=== PATIENT | female | born 1945 | race Caucasian/White ===

== ENCOUNTER → 2020-11-15 | Outpatient (CLI) | payer MEDICARE ==
[2020-11-15 14:21] LABS: Appearance,Urine Clear (Clear); Bilirubin,Urine Negative (Negative); Blood,Urine Negative (Negative); Color,Urine Yellow; Glucose,Urine (UA) Negative (Negative); Ketones,Urine Negative (Negative); Leukocyte Esterase,Urine Negative (Negative); Nitrite,Urine Negative (Negative); PH, Urine 6.5 (5.0-8.0); Protein,Urine Negative (Negative); Specific Gravity,Urine 1.018 (1.001-1.035); Urobilinogen,Urine <2.0 mg/dL (<2.0)
[2020-11-15 14:23] LABS: Basophils # (A) 0.1 k/uL (0-0.2); Basophils % (A) 1 %; Eosinophils # (A) 0.3 k/uL (0-0.7); Eosinophils % (A) 7 %; HCT 38.8 % (34.0-46.0); HGB 13.3 gm/dL (11.4-16.0); Lymphocytes # (A) 1.4 k/uL (1.0-4.8); Lymphocytes % (A) 32 %; MCH 29.3 pg (25.0-35.0); MCHC 34.3 g/dL (31.0-37.0); MCV 85.4 fL (80.0-100.0); Monocytes # (A) 0.3 k/uL (0-1.0); Monocytes % (A) 7 %; Neutrophils # (A) 2.3 k/uL (1.3-7.7); Neutrophils % (A) 52 %; Platelet Count 279 k/uL (150-450); RBC 4.54 m/uL (3.80-5.40); RDW 12.7 % (11.5-15.5); WBC 4.4 k/uL (3.8-10.6)
[2020-11-15 14:29] LABS: ALT 18 U/L (4-34); AST 21 U/L (14-36); African American GFR (CKD) >90 (>60 ml/min/1.73 sqM); Albumin 4.2 g/dL (3.5-5.0); Alkaline Phosphatase 69 U/L (38-126); Anion Gap 5 mmol/L; Blood Urea Nitrogen 18 mg/dL (7-17); Calcium 9.8 mg/dL (8.4-10.2); Carbon Dioxide 28 mmol/L (22-30); Chloride 106 mmol/L (98-107); Glucose 96 mg/dL (74-99); Non-African American GFR(CKD) 79 (>60 ml/min/1.73 sqM); Potassium 4.2 mmol/L (3.5-5.1); Sodium 139 mmol/L (137-145); Total Bilirubin 0.5 mg/dL (0.2-1.3); Total Protein 6.8 g/dL (6.3-8.2)
== END | disposition home or self-care (01) ==
LOC: LABPAT 13:39
PROVIDERS: ATTEND Urology
DX: Z01.818 Encounter for other preprocedural examination (principal); N13.1 Hydronephrosis with ureteral stricture, not elsewhere classified; R31.29 Other microscopic hematuria
CPT/HCPCS: 36415; 80053; 81003; 85025; 87086

== ENCOUNTER 2020-11-22 07:33 | Inpatient (IN) | payer MEDICARE ==
[2020-11-16 16:44] VITALS: BMI 33.3
--- NOTE | 2020-11-21 18:58 | P.GSHP ---
History of Present Illness H&P Date: 11/21/20 75 yo female with painful right hydronephrosis who comes for cysto retrograde and possibe right ureteral reimplant. 1 1/2 years ago she underwent a right ureteral dilation and stent placement. It controlled the problem. Follow up xray showed improvement as well as pain resolution. the pain and hydro subsequently have returned. She underwent a ct scan in [place] showing this. We discussed options The plan is cysto retrograde with probable right ureteral reimplantation. The risks including persistence of pain and obstruction have been explained understood and accepted. - Constitutional Constitutional: Denies chills, Denies fever - EENT Eyes: denies blurred vision, denies pain Ears, nose, mouth and throat: Denies headache, Denies sore throat - Cardiovascular Cardiovascular: Denies chest pain, Denies shortness of breath - Respiratory Respiratory: Denies cough, Denies 7 - Gastrointestinal Gastrointestinal: Denies abdominal pain, Denies diarrhea, Denies nausea, Denies vomiting - Genitourinary (Female) Genitourinary: Denies dysuria, Denies hematuria - Genitourinary (Male) Genitourinary: Denies dysuria, Denies hematuria - Musculoskeletal Musculoskeletal: Denies myalgias - Integumentary Integumentary: Denies pruritus, Denies rash - Neurological Neurological: Denies numbness, Denies weakness - Psychiatric Psychiatric: Denies anxiety, Denies depression - Endocrine Endocrine: Denies fatigue, Denies weight change Past Medical History Past Medical History: Cancer, COPD, GERD/Reflux, Hyperlipidemia, Hypertension, Musculoskeletal Disorder, Osteoarthritis (OA), Sleep Apnea/CPAP/BIPAP Additional Past Medical History / Comment(s): Breast cancer 06/2020, surgery 09/14/20, radiation tx - last 11/16/20. Hx hydronephrosis w/ ureteral blockage; hx kidney stones. Unable to use CPAP. 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 Cystoscopy, ureteral proc. Past Anesthesia/Blood Transfusion Reactions: Family History of Problems w/ Anesthesia Additional Past Anesthesia/Blood Transfusion Reaction / Comment(s): Brother wakes up during surgery Smoking Status: Never smoker - Past Family History Mother Family Medical History: Cancer Additional Family Medical History / Comment(s): colon, lung cancer Brother(s) Family Medical History: Cancer Additional Family Medical History / Comment(s): colon cancer Medications and Allergies Home Medications Medication Instructions Recorded Confirmed Type Aspirin [Adult Low Dose Aspirin EC] 81 mg PO DAILY 11/16/20 11/16/20 History Cholecalciferol [Vitamin D3 (25 75 mcg PO DAILY 11/16/20 11/16/20 History Mcg = 1000 Iu)] Losartan Potassium [Cozaar] 100 mg PO DAILY 11/16/20 11/16/20 History Verapamil Sr [Isoptin Sr] 240 mg PO DAILY 11/16/20 11/16/20 History Allergies Allergy/AdvReac Type Severity Reaction Status Date / Time Iodinated Contrast Media Allergy Dyspnea Verified 11/16/20 16:11 Surgical - Exam - General well developed, well nourished, no distress - Eyes PERRL - ENT no hearing loss - Neck trachea midline - Respiratory normal expansion, normal respiratory effort - Cardiovascular Rhythm: regular - Abdomen Abdomen: soft, non tender - Genitourinary normal external genitalia, normal perineum - Neurologic normal coordination, normal sensation - Musculoskeletal normal gait, normal posture - Psychiatric oriented to time, oriented to person, oriented to place, speech is normal, memory intact Assessment and Plan Assessment: Impression: Rt ureteral stricture.with symptomatic hydronephrosis. Plan Cysto with right retrograde pyelogram with probable ureteral reimplantation right
[~2020-11-22 07:33] MED LIST: AMPICILLIN 1,000 MG in SODIUM CHLORIDE 0.9% 50 ML IVPB PRN; DEXAMETHASONE SOD PHOSPHATE 4 MG/ML 1 ML VIAL IV PRN; GENTAMICIN 110 MG in SODIUM CHLORIDE 0.9% 100 ML IVPB PRN; LIDOCAINE 1% (10MG/ML) FOR IV START INTRADERMA PRN; METOCLOPRAMIDE 5 MG/ML 2 ML VIAL IVP PRN
[2020-11-22] MEDS ORDERED: ONDANSETRON 4 MG/2 ML VIAL ONE (08:07)
[2020-11-22] MEDS: LACTATED RINGERS 1,000 ML IV SCH (08:08)
[2020-11-22] MEDS ORDERED: GLYCOPYRROLATE 0.2 MG/ML 2 ML VIAL ONE (08:26)
[2020-11-22] MEDS ORDERED: LIDOCAINE 1% INJ 10MG/ML (20 ML MDV) ONE (08:26)
[2020-11-22] MEDS ORDERED: SUCCINYLCHOLINE CHLORIDE 100 MG/5 ML SYR IV ONE (08:26)
[2020-11-22] MEDS ORDERED: MIDAZOLAM 2 MG/2 ML VIAL ONE (08:26)
[2020-11-22] MEDS ORDERED: fentaNYL (PF) 50 MCG/ML 2 ML AMP ONE (08:26)
[2020-11-22] MEDS ORDERED: ROCURONIUM 10 MG/ML (5 ML VIAL) IV ONE (08:26)
[2020-11-22] MEDS ORDERED: ePHEDrine SULFATE/0.9% NACL/PF 50 MG/5 ML SYRINGE IV ONE (08:26)
[2020-11-22] MEDS ORDERED: PROPOFOL 10 MG/ML 20 ML VIAL IV ONE (08:26)
[2020-11-22] MEDS ORDERED: HYDROmorphone (PF) 1 MG/ML ONE (08:26)
[2020-11-22] MEDS ORDERED: NEOSTIGMINE 1 MG/ML 10 ML VIAL ONE (08:26)
[2020-11-22] MEDS ORDERED: IOPAMIDOL-370 50ML BTL MISCELLANE ONE (08:44)
[2020-11-22] MEDS ORDERED: LACTATED RINGERS 1,000 ML IV ONE ×2 (09:30→13:49)
[2020-11-22] MEDS ORDERED: HYDROmorphone PCA 10 MG/50 ML BAG IV PRN (10:33)
[2020-11-22] MEDS ORDERED: NALOXONE 0.4 MG/ML 1 ML VIAL IV PRN (10:33)
[2020-11-22] MEDS ORDERED: OXYBUTYNIN CHLORIDE 5 MG TAB PO PRN (10:38)
--- NOTE | 2020-11-22 10:38 | P.OP ---
Date of Procedure: 11/22/20 Preoperative Diagnosis: Right ureteral obstruction Postoperative Diagnosis: Same Procedure(s) Performed: Cystoscopy, right retrograde pyelograms, pelvic exploration with distal ureterectomy and right ureteral reimplantation, placement of 624 stent Anesthesia: [place] Surgeon: Christian Avila [employer] Member #1: Meño Mcduffie Estimated Blood Loss (ml): 100 Pathology: other (Distal ureter right) Condition: stable Disposition: PACU Indications for Procedure: The patient is 75. She has has had intermittent right flank pain. She x-rays and evaluation of identified a distal ureteral obstruction on the right. Dilation failed to control the problem. She come for distal ureterectomy and reimplantation Description of Procedure: Patient is brought to the operating suite. She is given a general endotracheal anesthesia. She's placed lithotomy position with sterile prep and drape. Cystoscopy Foroblique lens and 22-Serbian sheath identifies normal urethra. The bladder mucosa is unremarkable. Within a cone-tipped catheter right retrograde pyelogram performed. The intramural tunnel is very tight and there is a hydroureter proximal right to the ureteral vesicle junction. This appears to be the cause of her intermittent discomfort do. I will remove the distal right ureter and reimplant. Patient is taken out of lithotomy position placed in a prone position with sterile prep and drape. A midline and incision is made from pubis to below the umbilicus. The rectus fascia is opened in the middle. The prevesical space is developed. The bladder is identified and a vertical cystotomy is made. After adequate retraction the right distal ureter is identified. A 5-Serbian open- ended catheters passed up the ureter and secured to the ureteral orifice. I then ellipsed of the mucosa around the ureteral orifice. With electrocautery and Metzenbaums I dissect the right ureter out of the intramural tunnel back up into the pelvis. I advanced the ureter into the tunnel. The distal end of the ureter is resected. I spatulated the ureter and reimplant the ureter using 3-0 Vicryl. I first closed the muscle backing behind the ureter with interrupted 3- 0 Vicryl. After adequately reimplant in the ureter I then pass a 6-Serbian by 24 cm double-J catheter up the right ureter and coils in the renal pelvis and the bladder I then closed the bladder in 2 layers with 3-0 Vicryl and then 2-0 Vicryl. A Quintin-Monteiro drain is brought through separate stab incision. The rectus fascias closed with double-stranded 0 PDS. The skin is stapled the patient awake and returned recovery in good condition. Blood loss is approximately 100 mL. Patient we placed in the hospital postoperatively. Her condition is good.
[2020-11-22] MEDS: HYDROmorphone 0.5 MG/0.5 ML SYRINGE IVP PRN ×3 (10:43→12:36)
--- NOTE | 2020-11-22 11:45 | FL ---
Fluoroscopy INDICATION: Pain FINDINGS: Fluoroscopy time: 55 seconds. Images obtained: 3. IMPRESSIONS: 1. Documentation of fluoroscopy.
[2020-11-22] MEDS: ONDANSETRON 4 MG/2 ML VIAL IVP PRN ×2 (15:31→19:10)
[2020-11-22] MEDS: DEXTROSE 5%-0.45% NACL 1,000 ML IV SCH ×2 (15:56→20:55)
[2020-11-22] MEDS: HEPARIN SODIUM,PORCINE 5,000 UNIT/ML 1 ML VIAL SQ SCH (20:55)
[2020-11-22] MEDS: METOCLOPRAMIDE 5 MG/ML 2 ML VIAL IVP PRN (20:55)
[2020-11-23] MEDS: METOCLOPRAMIDE 5 MG/ML 2 ML VIAL IVP PRN (02:03)
[2020-11-23] MEDS: LACTATED RINGERS 1,000 ML IV SCH (07:35)
[2020-11-23] MEDS: LOSARTAN 50 MG TAB PO SCH (07:40)
[2020-11-23] MEDS: HEPARIN SODIUM,PORCINE 5,000 UNIT/ML 1 ML VIAL SQ SCH ×2 (07:41→20:29)
[2020-11-23] MEDS: VERAPAMIL SR 240 MG TABLET.ER PO SCH (07:41)
[2020-11-23] MEDS: DEXTROSE 5%-0.45% NACL 1,000 ML IV SCH ×2 (07:50→16:14)
--- NOTE | 2020-11-23 11:28 | P.PN ---
Subjective Progress Note Date: 11/23/20 Principal diagnosis: POD #1, s/p right ureteral reimplant The patient is lying supine in her bed. She states that her incisional pain is controlled. She has experienced intractable nausea since her surgery. She feels that Reglan has been more effective in controlling this than Zofran. Objective - Vital Signs Vital signs: Vital Signs Temp 97.6 F 11/23/20 10:29 Pulse 79 11/23/20 10:29 Resp 16 11/23/20 10:29 BP 174/80 11/23/20 10:29 Pulse Ox 92 L 11/23/20 10:29 Intake & Output 11/22/20 11/23/20 11/23/20 18:59 06:59 18:59 Intake Total 2152.75 Output Total 210 1920 Balance 1942.75 -1920 Weight 97.4 kg Intake: IV 2152.75 Output: Drainage 20 Right Abdomen 20 Urine 110 1900 Estimated Blood Loss 100 Other: Voiding Method Indwelling Catheter Indwelling Catheter Indwelling Catheter - Constitutional General appearance: Present: cooperative, no acute distress - Gastrointestinal Gastrointestinal Comment(s): Soft, non-distended. Incision clean, with minimal sanguinous drainage. Minimal REBECCA output. The Boone catheter is draining faintly blood-tinged urine. - Psychiatric Psychiatric: Present: A&O x's 3, appropriate affect Assessment and Plan (1) Ureteral stricture, right Current Visit: Yes Status: Acute Code(s): N13.5 - CROSSING VESSEL AND STRICTURE OF URETER W/O HYDRONEPHROSIS SNOMED Code(s): 89465055 Plan: The patient condition is stable. She was encouraged to ambulate.
[2020-11-24] MEDS: DEXTROSE 5%-0.45% NACL 1,000 ML IV SCH (01:14)
[2020-11-24] MEDS: LACTATED RINGERS 1,000 ML IV SCH (05:19)
[2020-11-24 07:35] VITALS: RESP 18
--- NOTE | 2020-11-24 07:40 | P.PN ---
Subjective Progress Note Date: 11/24/20 Second post op day from right ureteral reimplant. VSS afebrile uo good Minimal pain Drainage minimal WOund ok tolerated clear liquids. Will d/c ivf, ambulate and regular diet. WIll place on oral pain meds. If ok today plan on removing zeynep in am and d/c home rv in 1 week for cath and staple removal. Objective - Vital Signs Vital signs: Vital Signs Temp 98.9 F 11/24/20 06:24 Pulse 86 11/24/20 06:24 Resp 18 11/24/20 06:24 BP 162/82 11/24/20 06:24 Pulse Ox 90 L 11/24/20 06:24 Intake & Output 11/23/20 11/24/20 11/24/20 18:59 06:59 18:59 Output Total 3815 1910 Balance -3815 -1910 Output: Drainage 15 10 Right Abdomen 15 10 Urine 3800 1900 Other: Voiding Method Indwelling Catheter Indwelling Catheter
[2020-11-24] MEDS: VERAPAMIL SR 240 MG TABLET.ER PO SCH (08:43)
[2020-11-24] MEDS: HEPARIN SODIUM,PORCINE 5,000 UNIT/ML 1 ML VIAL SQ SCH ×2 (08:44→20:59)
[2020-11-24] MEDS: LOSARTAN 50 MG TAB PO SCH (08:44)
[2020-11-24] MEDS: HYDROcodone/APAP 5-325MG 1 EACH TAB PO PRN ×3 (12:58→23:36)
[2020-11-25] MEDS: LACTATED RINGERS 1,000 ML IV SCH (00:46)
[2020-11-25] MEDS: HYDROcodone/APAP 5-325MG 1 EACH TAB PO PRN ×3 (08:13→15:25)
[2020-11-25] MEDS: VERAPAMIL SR 240 MG TABLET.ER PO SCH (08:14)
[2020-11-25] MEDS: LOSARTAN 50 MG TAB PO SCH (08:14)
[2020-11-25] MEDS: HEPARIN SODIUM,PORCINE 5,000 UNIT/ML 1 ML VIAL SQ SCH (08:14)
--- NOTE | 2020-11-25 10:18 | P.DS ---
Providers Date of admission: 11/22/20 07:33 Attending physician: Christian Avila Primary care physician: Stated None Hospital Course: This is 75-year-old female with history of hydronephrosis. She underwent the right-sided ureteral implant by Dr. Betts on November 22. The patient was admitted to the hospital postoperatively. She did well in the postoperative period. Her REBECCA drain was removed on postoperative day #3. She was discharged home on postoperative day #3, with the Boone catheter. At time of discharge she was tolerating a diet, ambulating, pain was well-controlled. Her abdominal exam was benign and incision was CDI Plan - Discharge Summary Discharge Rx Participant: No New Discharge Prescriptions: New HYDROcodone/APAP 5-325MG [[place] 5-325] 1 tab PO Q6HR PRN 3 Days #12 tab PRN Reason: Pain No Action Cholecalciferol [Vitamin D3 (25 Mcg = 1000 Iu)] 75 mcg PO DAILY Aspirin [Adult Low Dose Aspirin EC] 81 mg PO DAILY Verapamil Sr [Isoptin Sr] 240 mg PO DAILY Losartan Potassium [Cozaar] 100 mg PO DAILY Discharge Medication List Aspirin [Adult Low Dose Aspirin EC] 81 mg PO DAILY 11/16/20 [History] Cholecalciferol [Vitamin D3 (25 Mcg = 1000 Iu)] 75 mcg PO DAILY 11/16/20 [History] Losartan Potassium [Cozaar] 100 mg PO DAILY 11/16/20 [History] Verapamil Sr [Isoptin Sr] 240 mg PO DAILY 11/16/20 [History] HYDROcodone/APAP 5-325MG [[place] 5-325] 1 tab PO Q6HR PRN 3 Days #12 tab 11/25/20 [Rx] Follow up Appointment(s)/Referral(s): [facility], [NON-STAFF] - ([facility] will call you to set up your first visit for 1-2 days after discharge from the hospital.) Christian Avila MD [STAFF PHYSICIAN] - 1 Week Activity/Diet/Wound Care/Special Instructions: No heavy lifting or straining for 4 weeks Increase fluid intake Discharge Disposition: HOME SELF-CARE
[2020-11-25 15:05] VITALS: BP 103/54; PULSE 79; TEMP 98.2
== END 2020-11-25 15:37 | disposition home health service (06) | DRG 661 ==
LOC: 2ORMAIN 07:33 → 4SSUR 14:10
PROVIDERS: ADMIT Urology; ATTEND Urology
PROC: BT1D1ZZ Fluoroscopy of Right Kidney, Ureter and Bladder using Low Osmolar Contrast (ICD-10-PCS; 2020-11-22)
PROC: 0TB68ZZ Excision of Right Ureter, Via Natural or Artificial Opening Endoscopic (ICD-10-PCS; principal; 2020-11-22 08:30)
PROC: 0T768DZ Dilation of Right Ureter with Intraluminal Device, Via Natural or Artificial Opening Endoscopic (ICD-10-PCS; 2020-11-22 08:30)
PROC: 0TS64ZZ Reposition Right Ureter, Percutaneous Endoscopic Approach (ICD-10-PCS; 2020-11-22 08:30)
DX: N13.1 Hydronephrosis with ureteral stricture, not elsewhere classified (principal); J44.9 Chronic obstructive pulmonary disease, unspecified; K21.9 Gastro-esophageal reflux disease without esophagitis; E78.5 Hyperlipidemia, unspecified; I10 Essential (primary) hypertension; G47.30 Sleep apnea, unspecified; M19.90 Unspecified osteoarthritis, unspecified site; R11.0 Nausea; Z79.82 Long term (current) use of aspirin; Z79.899 Other long term (current) drug therapy; Z85.3 Personal history of malignant neoplasm of breast; Z92.3 Personal history of irradiation; Z87.442 Personal history of urinary calculi; Z90.49 Acquired absence of other specified parts of digestive tract; Z90.710 Acquired absence of both cervix and uterus; Z98.890 Other specified postprocedural states; Z91.041 Radiographic dye allergy status; Z80.1 Family history of malignant neoplasm of trachea, bronchus and lung; Z80.0 Family history of malignant neoplasm of digestive organs
CPT/HCPCS: 74420; 88305

== ENCOUNTER → 2021-02-14 | Outpatient (CLI) | payer MEDICARE ==
--- NOTE | 2021-02-14 17:03 | CT ---
EXAMINATION TYPE: CT abdomen pelvis wo con DATE OF EXAM: 02/14/2021 COMPARISON: 04/07/2020 HISTORY: left flank pain CT DLP: 1102 mGycm Automated exposure control for dose reduction was used. Images obtained from the diaphragm to the floor the pelvis with no contrast. Lung bases are clear of consolidation. There is no pleural effusion. Heart size is normal. There is n o pericardial effusion. Liver spleen pancreas stomach appear intact. The bile ducts are not dilated. There are clips from cho lecystectomy. There is no adrenal mass. Kidneys have normal size. There is left-sided hydronephrosis and hydrourete r. There is 5 mm obstructing calculus in the distal left ureter close to the ureterovesical junction. Bladder distends smoothly. There is no inguinal hernia. There is no free fluid in the pelvis. There is no evidence of pelvic mass. There are multiple sigmoid diverticula. There is no diverticulitis. Ap pendix appears normal. There is no mesenteric edema. There is no ascites or free air. There is no bow el obstruction. Lumbar vertebra have normal alignment. There is no compression fracture. There is mild degenerative h ypertrophic changes. Bony pelvis is intact. There is some mild hypertrophic changes in the acetabula. IMPRESSION: Obstructing calculus distal left ureter with left-sided hydronephrosis and hydroureter. Obstruction a ppears new compared to old exam. No other calculus seen. Colonic diverticulosis.
== END | disposition home or self-care (01) ==
LOC: RADCTMAIN 16:21
PROVIDERS: ATTEND Urology
DX: N13.2 Hydronephrosis with renal and ureteral calculous obstruction (principal); K57.30 Diverticulosis of large intestine without perforation or abscess without bleeding; N13.4 Hydroureter; Z90.49 Acquired absence of other specified parts of digestive tract
CPT/HCPCS: 74176

== ENCOUNTER → 2021-02-14 | Outpatient (CLI) | payer MEDICARE ==
--- NOTE | 2021-02-14 15:27 | XR ---
EXAMINATION TYPE: XR KUB DATE OF EXAM: 02/14/2021 3:16 PM CLINICAL HISTORY: Right-sided kidney stone. TECHNIQUE: Two supine KUB images of the abdomen are obtained. COMPARISON: CT urogram April 07, 2020. FINDINGS: No definitive nephrolithiasis. Overall nonobstructive bowel gas pattern. Scattered bilateral pelvic phleboliths. Cystectomy clips re demonstrated. Multilevel spurring in the visualized spine. Sclerosis and narrowing at pubic symphysis . IMPRESSION: As above.
== END | disposition home or self-care (01) ==
LOC: RADXRMAIN 14:57
PROVIDERS: ATTEND Urology
DX: N20.0 Calculus of kidney (principal)
CPT/HCPCS: 74018

== ENCOUNTER → 2023-09-10 | Outpatient (CLI) | payer MEDICARE ==
--- NOTE | 2023-09-10 18:34 | XR ---
EXAMINATION TYPE: XR KUB DATE OF EXAM: 09/10/2023 5:03 PM CLINICAL INDICATION:Female, 77 years old with history of N20.0; H COMPARISON: KUB 02/14/2021 TECHNIQUE: Multiple radiographs of the abdomen were obtained. FINDINGS: The bowel gas pattern is nonspecific without dilated loops of small or large bowel. There i s no evidence for organomegaly or pneumoperitoneum. The osseous structures are intact. Pelvic phleb oliths are present. Fecal material and gas are demonstrated throughout the colon and rectum. Postsu rgical clips are noted in the right upper quadrant. IMPRESSION: Nonspecific bowel gas pattern without radiographic evidence for acute process.
== END | disposition home or self-care (01) ==
LOC: RADXRMAIN 16:40
PROVIDERS: ATTEND Urology
DX: N20.0 Calculus of kidney (principal); R14.0 Abdominal distension (gaseous)
CPT/HCPCS: 74018

== ENCOUNTER 2024-06-10 09:28 | Day surgery (SDC) | payer MEDICARE ==
--- NOTE | 2024-06-09 16:21 | P.GSHP ---
History of Present Illness H&P Date: 06/09/24 78 yo female seen in early may for luts, r uti and possible stone. She went to [facility] and had a ct scan that identified an 8 mm right mid ureteral stone.. She comes for right ureteroscopy with stone removal and probable stent plaement - Constitutional Constitutional: Denies chills, Denies fever - EENT Eyes: denies blurred vision, denies pain Ears, nose, mouth and throat: Denies headache, Denies sore throat - Cardiovascular Cardiovascular: Denies chest pain, Denies shortness of breath - Respiratory Respiratory: Denies cough, Denies 7 - Gastrointestinal Gastrointestinal: Denies abdominal pain, Denies diarrhea, Denies nausea, Denies vomiting - Genitourinary (Female) Genitourinary: Denies dysuria, Denies hematuria - Genitourinary (Male) Genitourinary: Denies dysuria, Denies hematuria - Musculoskeletal Musculoskeletal: Denies myalgias - Integumentary Integumentary: Denies pruritus, Denies rash - Neurological Neurological: Denies numbness, Denies weakness - Psychiatric Psychiatric: Denies anxiety, Denies depression - Endocrine Endocrine: Denies fatigue, Denies weight change Past Medical History Past Medical History: Cancer, GERD/Reflux, Hyperlipidemia, Hypertension, Musculoskeletal Disorder, Osteoarthritis (OA), Sleep Apnea/CPAP/BIPAP Additional Past Medical History / Comment(s): Breast cancer 06/2020, surgery 09/14/20, radiation tx - last 11/16/20. Hx hydronephrosis w/ ureteral blockage; hx kidney stones. Unable to use CPAP. 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 Cystoscopy, ureteral proc. Past Anesthesia/Blood Transfusion Reactions: Family History of Problems w/ Anesthesia Additional Past Anesthesia/Blood Transfusion Reaction / Comment(s): Brother wakes up during surgery Smoking Status: Never smoker - Past Family History Mother Family Medical History: Cancer Additional Family Medical History / Comment(s): colon, lung cancer Brother(s) Family Medical History: Cancer Additional Family Medical History / Comment(s): colon cancer Medications and Allergies Home Medications Medication Instructions Recorded Confirmed Type Aspirin [Adult Low Dose Aspirin EC] 81 mg PO DAILY 11/16/20 06/07/24 History Cholecalciferol [Vitamin D3 (25 75 mcg PO DAILY 11/16/20 06/07/24 History Mcg = 1000 Iu)] Losartan Potassium [Cozaar] 100 mg PO DAILY 11/16/20 06/07/24 History Verapamil Sr [Isoptin Sr] 240 mg PO DAILY 11/16/20 06/07/24 History Aspirin 325 mg PO DAILY 06/07/24 06/07/24 History Allergies Allergy/AdvReac Type Severity Reaction Status Date / Time Iodinated Contrast Media Allergy Dyspnea Verified 06/07/24 12:15 Surgical - Exam - General well developed, well nourished, no distress - Eyes normal ocular movement, no icteric - ENT no hearing loss, no congestion - Neck no masses, trachea midline - Respiratory normal respiratory effort, clear to auscultation - Abdomen Abdomen: soft, non tender, no guarding, no rigid, no rebound - Integumentary no rash, no abnormal pigmentation - Neurologic no disoriented, no combative - Psychiatric oriented to time, oriented to person, oriented to place, speech is normal, memory intact Results - Imaging CT scan - abdomen: report reviewed CT scan - pelvis: report reviewed Assessment and Plan Assessment: Impression: right ureteral stone with obstruction. Plan: right ureteroscopy with laser lithotripsy and probable stent placement
[~2024-06-10 09:28] MED LIST changes: -AMPICILLIN 1,000 MG in SODIUM CHLORIDE 0.9% 50 ML IVPB PRN; -DEXAMETHASONE SOD PHOSPHATE 4 MG/ML 1 ML VIAL IV PRN; -GENTAMICIN 110 MG in SODIUM CHLORIDE 0.9% 100 ML IVPB PRN; +HYDROmorphone 0.5 MG/0.5 ML SYRINGE IVP PRN; -METOCLOPRAMIDE 5 MG/ML 2 ML VIAL IVP PRN; +MIDAZOLAM 2 MG/2 ML VIAL IV PRN; +fentaNYL (PF) 50 MCG/ML 2 ML AMP IVP PRN
[2024-06-10] MEDS: IV FLUID CONTINUATION 1,000 ML IV ONE (10:38)
[2024-06-10] MEDS: ONDANSETRON 4 MG/2 ML VIAL IVP ONE (10:42)
[2024-06-10] MEDS: LACTATED RINGERS 1,000 ML IV SCH (10:42)
[2024-06-10] MEDS: DEXAMETHASONE SOD PHOSPHATE 4 MG/ML 1 ML VIAL IV ONE (10:42)
[2024-06-10 11:00] LABS: Basophils % (A) 0 %; Eosinophils % (A) 0 %; Lymphocytes # (A) 0.8 k/uL (1.0-4.8); Lymphocytes % (A) 11 %; MCH 29.7 pg (25.0-35.0); MCHC 34.2 g/dL (31.0-37.0); MCV 86.8 fL (80.0-100.0); Mean Platelet Volume 7.8; Monocytes # (A) 0.5 k/uL (0-1.0); Monocytes % (A) 7 %; Neutrophils # (A) 6.3 k/uL (1.3-7.7); Neutrophils % (A) 80 %; Platelet Count 316 k/uL (150-450); RBC 4.03 m/uL (3.80-5.40); RDW 13.4 % (11.5-15.5); WBC 7.9 k/uL (3.8-10.6)
[2024-06-10 11:16] LABS: ALT 57 U/L (4-34); African American GFR (CKD) 49 (>60 ml/min/1.73 sqM); Anion Gap 9 mmol/L; Blood Urea Nitrogen 39 mg/dL (7-17); Calcium 9.5 mg/dL (8.4-10.2); Carbon Dioxide 17 mmol/L (22-30); Chloride 108 mmol/L (98-107); Glucose 103 mg/dL (74-99); Non-African American GFR(CKD) 42 (>60 ml/min/1.73 sqM); Sodium 134 mmol/L (137-145); Total Bilirubin 1.3 mg/dL (0.2-1.3)
[2024-06-10] MEDS ORDERED: LIDOCAINE 1% INJ 10MG/ML (20 ML MDV) ONE (11:20)
[2024-06-10] MEDS ORDERED: ePHEDrine 50 MG/ML 1 ML VIAL ONE (11:20)
[2024-06-10] MEDS ORDERED: MIDAZOLAM 2 MG/2 ML VIAL ONE (11:20)
[2024-06-10] MEDS ORDERED: PROPOFOL 10 MG/ML 20 ML VIAL IV ONE (11:20)
[2024-06-10] MEDS ORDERED: SUCCINYLCHOLINE CHLORIDE 200 MG/10 ML VIAL IV ONE (11:20)
[2024-06-10] MEDS ORDERED: fentaNYL (PF) 50 MCG/ML 2 ML AMP ONE (11:20)
[2024-06-10] MEDS: GENTAMICIN 110 MG in SODIUM CHLORIDE 0.9% 100 ML IVPB PRN (11:25)
[2024-06-10] MEDS: AMPICILLIN 1,000 MG in SODIUM CHLORIDE 0.9% 50 ML IVPB PRN (11:25)
[2024-06-10 11:36] LABS: AST 47 U/L (14-36); Albumin 3.6 g/dL (3.5-5.0); Alkaline Phosphatase 155 U/L (38-126); Potassium 4.3 mmol/L (3.5-5.1); Total Protein 6.4 g/dL (6.3-8.2)
--- NOTE | 2024-06-10 12:01 | P.OP ---
Date of Procedure: 06/10/24 Preoperative Diagnosis: right ureteral calculus with obstruction Postoperative Diagnosis: same plus urine infection Procedure(s) Performed: cystoscopy, collection of urine for infection, placement of 6 x 24 double-J catheter right Anesthesia: [place] Surgeon: Christian Avila Estimated Blood Loss (ml): 0 Pathology: other (urine culture) Condition: stable Disposition: PACU Indications for Procedure: patient is 78. She was seen several weeks ago for recurrent urine infections. She developed pain in her primary doctor sent her to [place] for a CAT scan. The CAT scan showed an 8 mm mid to distal stone. She contacted me and I set her up for stone removal. This morning she has a temperature of 99 8 and states that she has not been eating and has had intermittent low-grade fevers 100.0. Description of Procedure: patient brought to the operating suite. She is given a general anesthetic. She's placed in lithotomy position with a sterile prep and drape. Cystoscopy is performed urine is grossly cloudy. The bladder dasilva inflamed. This is consist ent with cystitis. Because of this I will not do a stone removal as to not make her septic a. An 035 wires and passed up the right ureter by the stone. Over the wires passed a 6 x 24 double-J catheter that coils in the renal pelvis and the bladder. Urine emanating from the kidney is inflamed in cloudy. The bladder is drained a. The patient is awakened and returned recovery room good condition. Urine was sent for culture. The patient will be returned recovery room. If she is stable should be discharged home later on antibiotics. If not we will observe in the hospital.
[2024-06-10 12:09] VITALS: TEMP 97.4
[2024-06-10 12:41] VITALS: RESP 16
[2024-06-10 13:02] VITALS: BP 90/51; PULSE 68
--- NOTE | 2024-06-10 13:50 | FL ---
EXAMINATION TYPE: FL guidance operating room DATE OF EXAM: 06/10/2024 12:05 PM COMPARISON: Pre Operative Images if available both CT/MRI or plain film CLINICAL INDICATION: Female, 78 years old with history of N20.1 RIGHT URETERAL STONE; TECHNIQUE: FL guidance operating room, multiple fluoroscopic images provided for procedure. Total fluoroscopy time: 2 seconds Total submitted images to PACS: 1 DAP: 0.90849 mGym2 Gycm2 uGym2 cGycm2 or equivalent. FINDINGS: Multiple intraoperative fluoroscopic images were taken resulting in ureteral stent placement with sup erior pigtail in appropriate position projecting over the renal pelvis. No immediate intraoperative c omplication. Multilevel degeneration changes throughout the spine. IMPRESSION: 1. No evidence for intraoperative complication. 2. Please see the operative/procedural note for further details. [facility], , 06/10/2024 1:47 PM
--- NOTE | 2024-06-20 20:12 | XR ---
EXAMINATION TYPE: XR KUB DATE OF EXAM: 06/10/2024 COMPARISON: 09/10/2023 INDICATION: Right-sided ureteral stone TECHNIQUE: Single view abdomen supine view. Images presented today, previous dictation cannot be loca lenora. FINDINGS: There is a nonspecific bowel gas pattern. Some nonspecific small bowel gas in the left midabdomen. Ch olecystectomy clips are present. Psoas margins are normal. No organomegaly is present. No mass effect is evident. Multiple phleboliths, present previously, are evident. There is a 1.6 x 0.6 cm calcification at the left proximal pelvis may be a distal ureteral stone. IMPRESSION: 1. Distal right ureteral stone [facility], Workstation: [facility], 06/20/2024 8:10 PM
== END 2024-06-10 13:35 | disposition home or self-care (01) ==
LOC: OR 09:28
PROVIDERS: ATTEND Urology
DX: N20.1 Calculus of ureter
CPT/HCPCS: 74018; 80053; 85025; 87077; 87086; 87186

== ENCOUNTER 2024-06-25 08:47 | Day surgery (SDC) | payer MEDICARE ==
[2024-06-21 15:19] VITALS: BMI 31.9
--- NOTE | 2024-06-24 19:18 | P.GSHP ---
History of Present Illness H&P Date: 06/24/24 78 yo female who recently had a right ureteral stent placed with an obstructing 8 mm distal rt ureteral stone with pyonephrosis. She now comes for right ureteroscopy with laser lithotriosy, stent and stone removal. - Constitutional Constitutional: Denies chills, Denies fever - EENT Eyes: denies blurred vision, denies pain Ears, nose, mouth and throat: Denies headache, Denies sore throat - Cardiovascular Cardiovascular: Denies chest pain, Denies shortness of breath - Respiratory Respiratory: Denies cough, Denies 7 - Gastrointestinal Gastrointestinal: Denies abdominal pain, Denies diarrhea, Denies nausea, Denies vomiting - Genitourinary (Female) Genitourinary: Denies dysuria, Denies hematuria - Genitourinary (Male) Genitourinary: Denies dysuria, Denies hematuria - Musculoskeletal Musculoskeletal: Denies myalgias - Integumentary Integumentary: Denies pruritus, Denies rash - Neurological Neurological: Denies numbness, Denies weakness - Psychiatric Psychiatric: Denies anxiety, Denies depression - Endocrine Endocrine: Denies fatigue, Denies weight change Past Medical History Past Medical History: Cancer, GERD/Reflux, Hyperlipidemia, Hypertension, Musculo skeletal Disorder, Osteoarthritis (OA), Sleep Apnea/CPAP/BIPAP Additional Past Medical History / Comment(s): Recent kidney infection/kidney stone. Hx breast cancer 06/2020, surgery 09/14/20, radiation - last treatment 11/16/20. Hx hydronephrosis w/ ureteral blockage, hx kidney stones. Unable to use CPAP. 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 Past Anesthesia/Blood Transfusion Reactions: Family History of Problems w/ Anesthesia Additional Past Anesthesia/Blood Transfusion Reaction / Comment(s): Brother wakes up during surgery. Smoking Status: Never smoker - Past Family History Mother Family Medical History: Cancer Additional Family Medical History / Comment(s): Colon, lung cancer. Brother(s) Family Medical History: Cancer Additional Family Medical History / Comment(s): Colon cancer. Medications and Allergies Home Medications Medication Instructions Recorded Confirmed Type Aspirin [Adult Low Dose Aspirin EC] 81 mg PO DAILY 11/16/20 06/21/24 History Cholecalciferol [Vitamin D3 (25 75 mcg PO DAILY 11/16/20 06/21/24 History Mcg = 1000 Iu)] Losartan Potassium [Cozaar] 100 mg PO QAM 11/16/20 06/21/24 History Verapamil Sr [Isoptin Sr] 240 mg PO QAM 11/16/20 06/21/24 History Aspirin 325 mg PO DAILY 06/07/24 06/21/24 History Allergies Allergy/AdvReac Type Severity Reaction Status Date / Time Iodinated Contrast Media Allergy Dyspnea Verified 06/21/24 15:04 Surgical - Exam - General well developed, well nourished, no distress - Eyes normal ocular movement, no icteric - ENT no hearing loss, no congestion - Neck no masses, trachea midline - Respiratory normal respiratory effort, clear to auscultation - Abdomen Abdomen: soft, non tender, no guarding, no rigid, no rebound - Integumentary no rash, no abnormal pigmentation - Neurologic no disoriented, no combative - Psychiatric oriented to time, oriented to person, oriented to place, speech is normal, memory intact Results - Imaging Abdominal x-ray: report reviewed, image reviewed CT scan - abdomen: report reviewed, image reviewed CT scan - pelvis: report reviewed, image reviewed Assessment and Plan Assessment: Impression: right ureteral stone with stent. PLan: right ureteroscopy with laser lithotripsy stent and stone removal
[~2024-06-25 08:47] MED LIST changes: -LIDOCAINE 1% (10MG/ML) FOR IV START INTRADERMA PRN; -fentaNYL (PF) 50 MCG/ML 2 ML AMP IVP PRN
[2024-06-25 09:52] VITALS: TEMP 97
[2024-06-25] MEDS: IV FLUID CONTINUATION 1,000 ML IV ONE (09:53)
[2024-06-25] MEDS: LACTATED RINGERS 1,000 ML IV SCH (09:54)
--- NOTE | 2024-06-25 10:05 | XR ---
EXAMINATION TYPE: XR KUB DATE OF EXAM: 06/25/2024 9:57 AM CLINICAL INDICATION: Female, 78 years old with history of Kidney stones; [facility] COMPARISON: 06/10/2024. TECHNIQUE: One radiographic view of the abdomen was obtained. FINDINGS/IMPRESSION: 1. Right ureteral stent with inferior pigtail thought to be in abnormal position. Consider cross-sec tional imaging. 2. Multiple pelvic calcifications large stones seen on prior remains present measuring up to 12 mm a nd the distal right ureter. [facility], , 06/25/2024 10:03 AM
[2024-06-25] MEDS: ONDANSETRON 4 MG/2 ML VIAL IVP ONE (10:07)
[2024-06-25] MEDS: DEXAMETHASONE SOD PHOSPHATE 4 MG/ML 1 ML VIAL IV ONE (10:07)
[2024-06-25] MEDS: AMPICILLIN 1,000 MG in SODIUM CHLORIDE 0.9% 50 ML IVPB PRN (10:08)
[2024-06-25] MEDS ORDERED: PROPOFOL 10 MG/ML 20 ML VIAL IV ONE (10:56)
[2024-06-25] MEDS ORDERED: LIDOCAINE 1% INJ 10MG/ML (20 ML MDV) ONE (10:56)
[2024-06-25] MEDS ORDERED: ePHEDrine 50 MG/ML 1 ML VIAL ONE (10:56)
[2024-06-25] MEDS ORDERED: PHENYLEPHRINE-0.9% NACL SYG 1,000 MCG/10 ML SYRINGE ONE (10:56)
[2024-06-25] MEDS ORDERED: fentaNYL (PF) 50 MCG/ML 2 ML AMP ONE (10:56)
[2024-06-25] MEDS: GENTAMICIN 100 MG in SODIUM CHLORIDE 0.9% 100 ML IVPB PRN (10:58)
--- NOTE | 2024-06-25 11:46 | P.OP ---
Date of Procedure: 06/25/24 Preoperative Diagnosis: right ureteral calculus with stent Postoperative Diagnosis: same Procedure(s) Performed: cystoscopy, removal right double-J catheter, right ureteroscopy laser lithotripsy, replacement of 6 x 22 double-J catheter Anesthesia: [place] Surgeon: Christian Avila Estimated Blood Loss (ml): 25 Pathology: other (stone) Condition: stable Disposition: PACU Indications for Procedure: patient is 78. She had a previously obstructing ureteral stone with pyelonephrosis requiring a stent. She now comes for stone and stent removal Description of Procedure: short operative suite. Given a general anesthetic. Placed lithotomy position with sterile prep and drape. Cystoscopy Foroblique lens and 20-[place] sheath identifies a normal bladder. The stent is identified and removed. An 035 wires passed up the right ureter. Alongside the wires passed a semirigid cystoscope. With the 3 and 65 laser probe the stone was broken into tiny fragments and largest of which are basketed. There is a tremendous amount of edema where the stone was impacted thus I'll replace a stent. An 035 wires passed through the ureteroscope back into the kidney. I removed the ureteroscope and over the wires passed a 6 x 22 stent that coils in the renal pelvis and in the bladder. The bladder strain the patient is awakened and returned recovery room good condition. He'll be discharged home upon recovery and found the office in one week for stent removal
--- NOTE | 2024-06-25 12:29 | FL ---
EXAMINATION TYPE: FL guidance operating room DATE OF EXAM: 06/25/2024 12:16 PM COMPARISON: Pre Operative Images if available both CT/MRI or plain film CLINICAL INDICATION: Female, 78 years old with history of Cysto for rt kidney stone; TECHNIQUE: FL guidance operating room, multiple fluoroscopic images provided for procedure. Total fluoroscopy time: 39.8 seconds Total submitted images to PACS: 5 DAP: [id number] mGym2 Gycm2 uGym2 cGycm2 or equivalent. FINDINGS: Multiple intraoperative fluoroscopic images were taken resulting in ureteral stent placement with sup erior pigtail in appropriate position projecting over the renal pelvis. No immediate intraoperative c omplication. Multilevel degeneration changes throughout the spine. IMPRESSION: 1. No evidence for intraoperative complication. 2. Please see the operative/procedural note for further details. [facility], , 06/25/2024 12:26 PM
[2024-06-25 14:59] VITALS: BP 124/80; PULSE 70; RESP 16
== END 2024-06-25 14:57 | disposition home or self-care (01) ==
LOC: OR 08:47
PROVIDERS: ATTEND Urology
CPT/HCPCS: 74018; 82365